=== PATIENT | male | born 1965 | race Caucasian/White ===

== ENCOUNTER 2018-12-12 14:57 | Outpatient (CLI) | payer BC ==
[~2018-12-12 14:57] MED LIST: AGM875T PO; AMPI500C9 PO; KETO75CA PO; PANT40TA2 PO; SUCR1TAB36 PO
== END 2018-12-12 15:30 | disposition home or self-care (01) ==
LOC: SLEEP 14:57
PROVIDERS: ATTEND Nurse Practitioner
DX: G47.33 Obstructive sleep apnea (adult) (pediatric) (principal); G47.10 Hypersomnia, unspecified; R00.1 Bradycardia, unspecified

== ENCOUNTER 2021-05-08 09:18 | Outpatient (CLI) | payer OTHER ==
[~2021-05-08] VITALS: Ht 182.9 cm; Wt 104.3 kg
[2021-05-08 09:25] VITALS: BP 153/72
[2021-05-08] MEDS ORDERED: EPINEPHrine INJECTION 1 MG/ML AMP IM PRN (09:30)
[2021-05-08] MEDS ORDERED: ONDANSETRON 4 MG/2 ML (SDV) Z0FRAN IV PRN (09:30)
[2021-05-08] MEDS ORDERED: diphenhydrAMINE 50 MG/ML INJ (BENADRYL) IV PRN (09:30)
[2021-05-08] MEDS ORDERED: ACETAMINOPHEN 500 MG TAB (TYLENOL) PO PRN (09:30)
[2021-05-08] MEDS ORDERED: BAMLANIVIMAB 700 MG/ETESEVIMAB 1,400 MG IN NS IV ONE ×3 (09:30)
[2021-05-08 10:45] VITALS: BP 118/70
== END 2021-05-08 10:51 | disposition home or self-care (01) ==
LOC: INFUSION 09:18
PROVIDERS: ATTEND Nurse Practitioner Family
DX: U07.1 COVID-19 (principal)